=== PATIENT | male | born 1945 ===

== ENCOUNTER 2016-08-04 02:39 | Emergency (ER) | payer MEDICARE, OTHER ==
[~2016-08-04 02:39] MED LIST: CELEXA 20MG20 MG/TAB PO; MIRALAX119G PO
[2016-08-04 02:55] LABS: MEAN CELL VOLUME 65 fl (80.0-100.0); MEAN CORPUSCULAR HGB CONC 30 g/dl (33.0-37.0); MEAN PLATELET VOLUME 10.4 fl (7.4-10.4); PLATELET COUNT 1306 K/mm3 (130-400); RED BLOOD COUNT 5.65 M/mm3 (4.20-5.60); REDCELL DISTRIBUTION WIDTH-CV 22.2 % (11.5-14.5)
[2016-08-04] MEDS ORDERED: PROTONIX 40MG T40 MG PO (03:00)
[2016-08-04 03:01] LABS: INR 1.3 (0.8-3.0); PROTHROMBIN TIME 14.1 SECONDS (9.7-12.8)
[2016-08-04 03:04] LABS: ADJUSTED CALCIUM 9.2 mg/dL (8.4-10.2); ALANINE AMINOTRANSFERASE 26 U/L (21-72); ALBUMIN 4.6 gm/dL (3.5-5.0); ALKALINE PHOSPHATASE 136 U/L (50-136); ANION GAP 26 mmol/L (7-16); BILIRUBIN,TOTAL 0.9 mg/dL (0.0-1.0); BLOOD UREA NITROGEN 37 mg/dL (9-20); CALCIUM 9.7 mg/dL (8.4-10.2); CHLORIDE 100 mmol/L (98-107); CREATININE, serum 2.22 mg/dL (0.66-1.25); GLUCOSE 353 mg/dL (74-106); POTASSIUM 4.6 mmol/L (3.4-5.0); SODIUM 139 mmol/L (137-145); TOTAL PROTEIN 7.9 gm/dL (6.4-8.2)
[2016-08-04 03:12] LABS: B-TYPE NATRIURETIC PEPTIDE 973 pg/mL (0-125)
[2016-08-04 03:16] LABS: CARBON DIOXIDE 14 mmol/L (22-30); TROPONIN-I < 0.012 ng/mL (0.000-0.034)
[2016-08-04 03:19] LABS: VENOUS BLOOD GAS BE -8.4 (-4-4); VENOUS BLOOD GAS SAO2 30.3 % (60-80)
[2016-08-04 03:20] LABS: VENOUS BLOOD GAS SITE VENIPUNCTURE
[2016-08-04 03:25] LABS: LIPASE 275 U/L (23-300)
[2016-08-04 03:27] LABS: ADD PATHOLOGY DIFF REVIEW NO; HEMATOCRIT 36.8 % (42.0-52.0); HEMOGLOBIN 10.9 g/dl (13.5-18.0); MEAN CORPUSCULAR HEMOGLOBIN 19 pg (27.0-31.0)
[2016-08-04 03:36] LABS: BAND 7 % (0-10); NEUTROPHILS 83 % (42.0-75.2); TOTAL CELLS COUNTED 100
[2016-08-04 03:37] LABS: WHITE BLOOD COUNT 47.2 K/mm3 (4.8-10.8)
[2016-08-04 04:12] VITALS: TEMP 94.7
[2016-08-04 05:57] VITALS: BP 132/93; PULSE 110
== END 2016-08-04 06:00 | disposition short-term general hospital (02) ==
LOC: COL.ER 02:39
PROVIDERS: Emergency Medicine
DX: E87.2 Acidosis (principal); D47.3 Essential (hemorrhagic) thrombocythemia; K56.69 Other intestinal obstruction; Z85.528 Personal history of other malignant neoplasm of kidney; Z90.5 Acquired absence of kidney; R93.3 Abnormal findings on diagnostic imaging of other parts of digestive tract; R91.8 Other nonspecific abnormal finding of lung field
CPT/HCPCS: J2405; J2543; J7030; J7050

== ENCOUNTER → 2016-11-26 | Outpatient (CLI) | payer MEDICARE ==
[~2016-11-26] MED LIST changes: +PROTONIX 40MG T40 MG PO
== END ==
LOC: COL.RAD 09:24
DX: N28.89 Other specified disorders of kidney and ureter (principal); R91.8 Other nonspecific abnormal finding of lung field; I77.810 Thoracic aortic ectasia; E27.8 Other specified disorders of adrenal gland; R59.0 Localized enlarged lymph nodes; K63.89 Other specified diseases of intestine; Z90.5 Acquired absence of kidney